=== PATIENT | female | born 1985 | race Caucasian/White ===

== ENCOUNTER 2019-06-16 22:43 | Observation (INO) | payer MEDICAID ==
[~2019-06-16] VITALS: Ht 167.6 cm; Wt 73.9 kg
== END 2019-06-16 23:46 | disposition home or self-care (01) ==
LOC: SPU 22:43
PROVIDERS: ADMIT Obstetrics & Gynecology; ATTEND Obstetrics & Gynecology
DX: O46.93 Antepartum hemorrhage, unspecified, third trimester (principal); O26.893 Other specified pregnancy related conditions, third trimester; R10.9 Unspecified abdominal pain; Z3A.36 36 weeks gestation of pregnancy
CPT/HCPCS: G0378

== ENCOUNTER 2019-07-11 18:28 | Inpatient (IN) | payer MEDICAID ==
[~2019-07-11] VITALS: Ht 152.4 cm; Wt 74.8 kg
[2019-07-11] MEDS ORDERED: LR 1,000 ML IV SCH (18:32)
[2019-07-11] MEDS ORDERED: LR 1,000 ML IV ONE (18:32)
[2019-07-11] MEDS ORDERED: OXYTOCIN/0.9 % SODIUM CHLORIDE 1,000 ML IV SCH (18:32)
[2019-07-11] MEDS ORDERED: TERBUTALINE SULFATE 1 MG/ML VIAL SUBCUT ONE (18:45)
[2019-07-11 19:14] LABS: BASOPHILS % (AUTO) 0.3 % (0.0-2.0); EOSINOPHILS # (AUTO) 0.1 K/uL (0.0-0.4); EOSINOPHILS % (AUTO) 1.4 % (0.0-4.0); HEMATOCRIT 38.5 % (36-48); HEMOGLOBIN 13.1 g/dL (12.0-16.0); LYMPHOCYTES % (AUTO) 21.2 % (20.5-51.5); MEAN CORPUSCULAR HEMOGLOBIN 29 pg (27-31); MEAN CORPUSCULAR HGB CONC 34 % (32-36); MEAN CORPUSCULAR VOLUME 86 fL (79.0-98.0); MONOCYTES # (AUTO) 0.7 K/uL (0.0-1.0); MONOCYTES % (AUTO) 7.4 % (1.7-9.3); NEUTROPHILS # (AUTO) 6.4 K/uL (1.8-7.7); NEUTROPHILS % (AUTO) 69.7 % (40.0-70.0); PLATELET COUNT (AUTO) 166 K/uL (130-430); RED BLOOD CELL COUNT(AUTO) 4.51 MIL/uL (4.2-6.2); RED CELL DISTRIBUTION WIDTH 13.7 % (9.0-15.0); WHITE BLOOD COUNT (AUTO) 9.2 K/uL (4.8-10.8)
[2019-07-11] MEDS ORDERED: fentaNYL CITRATE/PF 100 MCG/2 ML AMP ONE (20:46)
[2019-07-11] MEDS ORDERED: ROPIVACAINE HCL/PF 0.2% 200 ML ONE (20:47)
[2019-07-11] MEDS ORDERED: LR 500 ML IV ONE (21:24)
[2019-07-11] MEDS ORDERED: FENT2mCg/mL-ROPIVA0.2%/NS EPID 200 ML EP SCH (21:30)
[2019-07-12 02:20] VITALS: BP_SYST 121
[2019-07-12] MEDS ORDERED: OXYTOCIN/0.9 % SODIUM CHLORIDE 1,000 ML IV ONE (03:50)
[2019-07-12] MEDS ORDERED: OXYCODONE/ACETAMINOPHEN 5-325 TABLET PO PRN (04:00)
[2019-07-12] MEDS ORDERED: METHYLERGONOVINE MALEATE 0.2 MG TABLET PO PRN (04:00)
[2019-07-12] MEDS ORDERED: LANOLIN 7 GM OINT. TP PRN (04:00)
[2019-07-12] MEDS ORDERED: WITCH HAZEL LEAF 1 MED.PAD MED.PAD TP PRN (04:00)
[2019-07-12] MEDS ORDERED: SENNOSIDES/DOCUSATE SODIUM 1 TAB TABLET(SENOKOT-S) PO PRN (04:00)
[2019-07-12] MEDS ORDERED: ANUSOL 1 EA SUPP.RECT (PREPARATION H) RC PRN (04:00)
[2019-07-12] MEDS ORDERED: DERMOPLAST SPRAY TP PRN (04:00)
[2019-07-12] MEDS: DOCUSATE SODIUM 100 MG CAPSULE PO PRN ×2 (06:24→23:54)
[2019-07-12] MEDS: IBUPROFEN 800 MG TABLET PO PRN ×4 (06:24→23:54)
[2019-07-12] MEDS ORDERED: METHYLERGONOVINE MALEATE 0.2 MG/ML AMP ONE (07:52)
[2019-07-12] MEDS ORDERED: METHYLERGONOVINE MALEATE 0.2 MG/ML AMP IM ONE (08:00)
[2019-07-12] MEDS: OXYCODONE/ACETAMINOPHEN 5-325 TABLET PO PRN ×3 (10:03→23:54)
[2019-07-12] MEDS ORDERED: TEMAZEPAM 15 MG CAPSULE PO PRN (21:00)
[2019-07-13 06:35] LABS: HEMATOCRIT 29.7 % (36-48); HEMOGLOBIN 9.9 g/dL (12.0-16.0)
[2019-07-13] MEDS: IBUPROFEN 800 MG TABLET PO PRN ×2 (07:06→12:20)
[2019-07-13] MEDS: DOCUSATE SODIUM 100 MG CAPSULE PO PRN (12:20)
== END 2019-07-13 14:32 | disposition home or self-care (01) | DRG 560 ==
LOC: OBSVTOIN 18:28 → SPU 18:28
PROVIDERS: ADMIT Obstetrics & Gynecology; ATTEND Obstetrics & Gynecology
PROC: 10E0XZZ Delivery of Products of Conception, External Approach (ICD-10-PCS; principal; 2019-07-12)
PROC: 3E0R3BZ Introduction of Anesthetic Agent into Spinal Canal, Percutaneous Approach (ICD-10-PCS; 2019-07-12)
PROC: 00HU33Z Insertion of Infusion Device into Spinal Canal, Percutaneous Approach (ICD-10-PCS; 2019-07-12)
DX: O71.89 Other specified obstetric trauma (principal); R71.0 Precipitous drop in hematocrit; Z37.0 Single live birth; Z3A.39 39 weeks gestation of pregnancy
CPT/HCPCS: 36415; 81002-TC; 85018-TC; 85025; 86592; 86886; 86900; 86901; 94760; J2210; J2590; J3010; J7120

== ENCOUNTER 2019-07-17 11:41 | Emergency (ER) | payer MEDICAID ==
[~2019-07-17] VITALS: Ht 167.6 cm; Wt 74.4 kg
[2019-07-17 11:59] VITALS: BP_SYST 122
[2019-07-17] MEDS ORDERED: IBUPROFEN 800 MG TABLET PO ONE (15:30)
[2019-07-17 15:40] VITALS: BP_SYST 115
[2019-07-17 15:44] LABS: BILIRUBIN,URINE NEGATIVE (NEGATIVE); BLOOD, URINE 3+ (NEGATIVE); COLOR,URINE YELLOW (YELLOW); GLUCOSE,URINE NEGATIVE (NEGATIVE); KETONES,URINE 1+ (NEGATIVE); LEUKOCYTE ESTERASE ,URINE 2+ (NEGATIVE); NITRITE, URINE NEGATIVE (NEGATIVE); PROTEIN URINE NEGATIVE (NEGATIVE); UROBILINOGEN,URINE 0.2 (0.2-1.0)
[2019-07-17 15:51] LABS: CLARITY/URINE HAZY (CLEAR)
[2019-07-17 15:57] LABS: BACTERIA,URINE MODERATE /HPF (None Seen); RBC,URINE 20-50 /HPF (0-3)
[2019-07-17 15:58] LABS: MUCUS,URINE 1+ /LPF (None Seen)
== END 2019-07-17 15:40 | disposition home or self-care (01) ==
LOC: SED 11:41
DX: O72.2 Delayed and secondary postpartum hemorrhage (principal); O86.20 Urinary tract infection following delivery, unspecified; O99.89 Other specified diseases and conditions complicating pregnancy, childbirth and the puerperium; L02.412 Cutaneous abscess of left axilla; L02.411 Cutaneous abscess of right axilla
CPT/HCPCS: 76830-TC; 76857; 81000-TC; 87086; 88305; 99284